=== PATIENT | male | born 1980 | race Two or more races ===

== ENCOUNTER 2019-02-15 13:24 | Emergency (ER) | payer MEDICAID ==
[~2019-02-15] VITALS: Ht 188 cm; Wt 113.0 kg
[2019-02-15 14:12] VITALS: BP 157/101
== END 2019-02-15 16:25 | disposition left against medical advice (07) ==
LOC: ER 15:59
DX: M79.605 Pain in left leg (principal); Z53.21 Procedure and treatment not carried out due to patient leaving prior to being seen by health care provider